=== PATIENT | male | born 1945 | race Asian ===

== ENCOUNTER → 2020-12-02 | Outpatient (CLI) | payer MEDICARE ==
[~2020-12-02] MED LIST: ASPI-1497 PO; ATOR20TA65 PO; CLOP75TA33 PO; LEVO50TA8 PO; LOSA50TA41 PO; NEBI5TAB3 PO
== END | disposition home or self-care (01) ==
LOC: LAB 10:06
PROVIDERS: ATTEND Specialist
DX: Z01.812 Encounter for preprocedural laboratory examination (principal); R05 Cough; Z20.822 Contact with and (suspected) exposure to COVID-19
CPT/HCPCS: 87426

== ENCOUNTER 2022-08-04 08:04 | Day surgery (SDC) | payer MEDICARE, BC ==
[2022-08-04] MEDS ORDERED: ASPIRIN/SOD BICARB/CITRIC ACID 324MG TAB EFF ONE (08:13)
[2022-08-04] MEDS ORDERED: IODIXANOL 320MG/ML 100 ML BOTTLE IV ONE (10:48)
[2022-08-04] MEDS ORDERED: HEPARIN 1000 UNITS/ML 10ML ONE (10:48)
[2022-08-04] MEDS ORDERED: LIDOCAINE HCL/PF 1% 10 MG/ML 5ML VIAL ONE (10:48)
[2022-08-04] MEDS ORDERED: FENTANYL CITRATE/PF 50MCG/ML 2ML VIAL ONE (10:49)
[2022-08-04] MEDS ORDERED: MIDAZOLAM HCL 2 MG/2 ML VIAL ONE (10:49)
[2022-08-04] MEDS ORDERED: ATROPINE SULFATE 1MG/10ML SYR IV PRN (12:00)
[2022-08-04] MEDS ORDERED: ACETAMINOPHEN 325MG TABLET PO PRN (12:00)
[2022-08-04] MEDS ORDERED: ONDANSETRON HCL 4MG/2ML INJ IV PRN (12:00)
[2022-08-04] MEDS ORDERED: MORPHINE SULFATE 2 MG/ML CPJ (NOT FOR IM USE) IV PRN (12:00)
[2022-08-04] MEDS ORDERED: NALOXONE HCL 0.4MG/ML VIAL IV PRN (12:15)
== END 2022-08-04 15:45 | disposition home or self-care (01) ==
LOC: CCL 08:04
PROVIDERS: ATTEND Specialist
DX: I25.10 Atherosclerotic heart disease of native coronary artery without angina pectoris (principal); E11.9 Type 2 diabetes mellitus without complications; E78.5 Hyperlipidemia, unspecified; I10 Essential (primary) hypertension; E03.9 Hypothyroidism, unspecified; Z79.82 Long term (current) use of aspirin; Z79.84 Long term (current) use of oral hypoglycemic drugs; Z79.899 Other long term (current) drug therapy; Z98.890 Other specified postprocedural states
CPT/HCPCS: 85347; 93458; 93571; C1769; C1887; C1893; J1644; J2250; J3010; J3490; Q9967

== ENCOUNTER 2023-08-27 14:29 | Emergency (ER) | payer MEDICARE, BC ==
[~2023-08-27] VITALS: Ht 172.7 cm; Wt 91.0 kg
[~2023-08-27 14:29] MED LIST changes: +NEBI5TAB2 PO; -NEBI5TAB3 PO
[2023-08-27 14:48] VITALS: O2SAT 98
[2023-08-27 15:51] LABS: HEMATOCRIT. 46.9 % (42.0-52.0); MEAN CORPUSCULAR HEMOGLOBIN 20.1 pg (28.0-32.0); MEAN CORPUSCULAR HGB CONC 29.9 g/dL (31.0-37.0); MEAN CORPUSCULAR VOLUME 67.4 fL (80.0-94.0); MEAN PLATELET VOLUME 8.5 fl (7.4-10.4); PLATELET 132 x1000/uL (130-400); RED BLOOD CELL COUNT 6.96 mill/uL (4.7-6.1); RED CELL DISTRIBUTION WIDTH 15.6 % (11.6-14.6); WHITE BLOOD COUNT 18.8 x1000/uL (4.5-11.0)
[2023-08-27 15:59] LABS: PROTHROMBIN TIME 10.5 sec (9.6-11.0)
[2023-08-27 16:00] LABS: DIFFERENTIAL COMMENT 1
[2023-08-27 16:07] LABS: ALANINE AMINOTRANSFERASE 34 IU/L (10-49); ASPARTATE AMINOTRANSFERASE 19 IU/L (<34); BILIRUBIN TOTAL 1.1 mg/dL (0.1-1.0); CALCIUM 8.3 mg/dL (8.7-10.4); CARBON DIOXIDE 27 mEq/L (21-32); CHLORIDE 100 mEq/L (98-107); CREATININE 0.6 mg/dL (0.6-1.3); GLUCOSE 94 mg/dL (70-105); POTASSIUM 3.9 mEq/L (3.5-5.1); SODIUM 134 mEq/L (136-145); TROPONIN I HIGH SENSITIVITY 7 ng/L (3.0-53); UREA NITROGEN BLOOD 20 mg/dL (9-23)
[2023-08-27 18:59] LABS: ANISOCYTOSIS 1+; PLATELET ESTIMATE NORMAL
[2023-08-27 19:00] LABS: HYPOCHROMASIA 1+; MICROCYTOSIS 3+
[2023-08-27] MEDS ORDERED: MAG-55 MT (21:18)
[2023-08-27] MEDS ORDERED: FAMO40TA70 MT (21:18)
[2023-08-27 21:30] VITALS: BP 121/71; PULSE 74; RESP 18; TEMP 98.2
== END 2023-08-27 21:33 | disposition home or self-care (01) ==
LOC: ER 14:29 → CANBEDREQ 08-29 20:53
DX: R10.13 Epigastric pain (principal); E78.00 Pure hypercholesterolemia, unspecified; I10 Essential (primary) hypertension; Z79.899 Other long term (current) drug therapy
CPT/HCPCS: 36415; 71045; 74176; 76705; 80053; 83605; 84145; 84484; 85025; 93005; 99285